=== PATIENT | female | born 1975 | race Two or more races ===

== ENCOUNTER 2023-01-12 18:15 | Emergency (ER) | payer OTHER ==
[~2023-01-12] VITALS: Ht 165.1 cm; Wt 76.0 kg
[2023-01-12 19:07] LABS: Urine Bacteria NONE SEEN /hpf (None Seen); Urine Blood Negative /uL (Negative); Urine Clarity Clear (Clear); Urine Color Colorless (Yellow); Urine Mucus FEW (None Seen); Urine Protein, UAD Negative (Negative); Urine Urobilinogen Normal (Negative); Urine WBC 1 /hpf (0 - 5); Urine pH 5.5 (5.0-8.0)
[2023-01-12] MEDS ORDERED: CYCL-839 PO (21:06)
[2023-01-12] MEDS ORDERED: HYDR-4902 PO (21:06)
[2023-01-12] MEDS ORDERED: KETOROLAC TROMETH 60MG/2ML VIAL IM ONE (21:15)
[2023-01-12] MEDS ORDERED: HYDROcodone-ACET 5/325MG TAB PO ONE (21:15)
[2023-01-12] MEDS ORDERED: DexAMETHasone SOD PHOS 10MG/1ML VIAL INJ IM ONE (21:15)
[2023-01-13 02:19] VITALS: BP 130/94; PULSE 102; RESP 18; TEMP 97.8; O2SAT 100
== END 2023-01-12 22:09 | disposition home or self-care (01) ==
LOC: ER 18:15
DX: M62.830 Muscle spasm of back (principal); M54.32 Sciatica, left side; Z79.1 Long term (current) use of non-steroidal anti-inflammatories (NSAID); Z79.899 Other long term (current) drug therapy; Z91.013 Allergy to seafood
CPT/HCPCS: 72131; 81001; 96372; 99285; J1100; J1885